=== PATIENT | male | born 1935 | race Caucasian/White ===

== ENCOUNTER → 2017-06-24 | Outpatient (CLI) | payer MEDICARE, OTHER ==
[~2017-06-24] MED LIST: OMEP-110 PO; PHYT1CAP2 PO; THYROID MEDICATION
[2017-06-24 12:46] LABS: BASOPHILS # (AUTO) 0.04 x10^3/uL (0-0.1); BASOPHILS % (AUTO) 1 % (0-1); EOSINOPHILS # (AUTO) 0.48 x10^3/uL (0-0.4); EOSINOPHILS % (AUTO) 6 % (1-7); LYMPHOCYTES # (AUTO) 2.37 x10^3/uL (1-3.4); LYMPHOCYTES % (AUTO) 31 % (22-44); MD NO; MEAN CORPUSCULAR HEMOGLOBIN 32.3 pg (27.5-34.5); MEAN CORPUSCULAR HGB CONC 33.9 g/dL (33.2-36.2); MEAN CORPUSCULAR VOLUME 95.1 fL (81-97); MEAN PLATELET VOLUME 8.6 fL (7.4-10.4); MONOCYTES # (AUTO) 0.54 x10^3/uL (0.2-0.8); MONOCYTES % (AUTO) 7 % (2-9); NEUTROPHILS # (AUTO) 4.36 x10^3/uL (1.8-6.8); NEUTROPHILS % (AUTO) 56 % (42-75); PLATELET COUNT 219 x10^3/uL (130-400); RED BLOOD COUNT 5.51 x10^6/uL (4.38-5.82); RED CELL DISTRIBUTION WIDTH 13.3 % (9.4-14.8)
[2017-06-24 12:50] LABS: CULTURE INDICATED? NO; MICROSCOPIC NOT IND
[2017-06-24 13:08] LABS: ALBUMIN 4.2 g/dL (3.4-5.0); ANION GAP 6 mmol/L (5-15); CALCIUM 8.6 mg/dL (8.5-10.1); CHLORIDE 107 mmol/L (98-107)
[2017-06-24 13:20] LABS: ALANINE AMINOTRANSFERASE 34 U/L (12-78); ALKALINE PHOSPHATASE 56 U/L (45-117); BILIRUBIN,TOTAL 1.2 mg/dL (0.2-1.0); CHOL/HDL RATIO 2.3; CHOLESTEROL, TOTAL 124 mg/dL (140-239); HDL CHOL % 44 % (26-37); HDL CHOLESTEROL (DIRECT) 54 mg/dL (40-60); LDL CHOLESTEROL,CALCULATED 44 mg/dL (54-169); LDL/HDL RATIO 0.8 (0.5-3.0); TOTAL PROTEIN 7.8 g/dL (6.4-8.2); TRIGLYCERIDES 129 mg/dL (50-200); VLDL CHOLESTEROL 26 mg/dL (0-25)
[2017-06-24 14:48] LABS: OCCULT BLOOD POSITIVE (NEGATIVE)
== END | disposition home or self-care (01) ==
LOC: CFH 11:08
PROVIDERS: ATTEND Family Medicine
DX: E78.5 Hyperlipidemia, unspecified (principal); E03.9 Hypothyroidism, unspecified; E55.9 Vitamin D deficiency, unspecified; I10 Essential (primary) hypertension; R97.20 Elevated prostate specific antigen [PSA]; K92.1 Melena
CPT/HCPCS: 36415; 80053; 80061; 81003; 82272; 82306; 84153; 84443; 85025

== ENCOUNTER → 2017-08-19 | Outpatient (CLI) | payer MEDICARE, OTHER | END | disposition home or self-care (01) | LOC: CFH 12:45 | PROVIDERS: ATTEND Family Medicine | DX: M17.12 Unilateral primary osteoarthritis, left knee (principal) ==

== ENCOUNTER → 2017-09-29 | Outpatient (CLI) | payer MEDICARE, OTHER ==
[~2017-09-29] MED LIST changes: +GADOBUTROL 10 MMOL/10 ML PFS ONE
== END | disposition home or self-care (01) ==
LOC: CFH 09:34
PROVIDERS: ATTEND Family Medicine
DX: M23.222 Derangement of posterior horn of medial meniscus due to old tear or injury, left knee (principal); M71.22 Synovial cyst of popliteal space [Baker], left knee; R60.0 Localized edema
CPT/HCPCS: 73723; 82565; A9585

== ENCOUNTER → 2017-12-12 | Outpatient (CLI) | payer MEDICARE, OTHER ==
[~2017-12-12] MED LIST changes: -GADOBUTROL 10 MMOL/10 ML PFS ONE
[2017-12-12 14:48] LABS: BASOPHILS # (AUTO) 0.03 x10^3/uL (0-0.1); BASOPHILS % (AUTO) 0 % (0-1); EOSINOPHILS # (AUTO) 0.47 x10^3/uL (0-0.4); EOSINOPHILS % (AUTO) 5 % (1-7); LYMPHOCYTES # (AUTO) 2.16 x10^3/uL (1-3.4); LYMPHOCYTES % (AUTO) 24 % (22-44); MD NO; MEAN CORPUSCULAR HEMOGLOBIN 31.5 pg (27.5-34.5); MEAN CORPUSCULAR HGB CONC 33.2 g/dL (33.2-36.2); MEAN CORPUSCULAR VOLUME 94.8 fL (81-97); MEAN PLATELET VOLUME 8.6 fL (7.4-10.4); MONOCYTES # (AUTO) 0.73 x10^3/uL (0.2-0.8); MONOCYTES % (AUTO) 8 % (2-9); NEUTROPHILS # (AUTO) 5.57 x10^3/uL (1.8-6.8); NEUTROPHILS % (AUTO) 62 % (42-75); PLATELET COUNT 207 x10^3/uL (130-400); RED BLOOD COUNT 5.26 x10^6/uL (4.38-5.82); RED CELL DISTRIBUTION WIDTH 14.6 % (9.4-14.8)
[2017-12-12 14:52] LABS: ALANINE AMINOTRANSFERASE 31 U/L (12-78); ALBUMIN 3.8 g/dL (3.4-5.0); ANION GAP 6 mmol/L (5-15); CALCIUM 8.5 mg/dL (8.5-10.1); CHLORIDE 109 mmol/L (98-107); CREATININE 1.28 mg/dL (0.7-1.3)
[2017-12-12 14:56] LABS: ALKALINE PHOSPHATASE 59 U/L (45-117); BILIRUBIN,TOTAL 1.1 mg/dL (0.2-1.0)
== END | disposition home or self-care (01) ==
LOC: CFH 14:13
PROVIDERS: ATTEND Family Medicine
DX: R06.02 Shortness of breath (principal)
CPT/HCPCS: 36415; 80053; 83880; 85025

== ENCOUNTER → 2018-03-28 | Outpatient (CLI) | payer MEDICARE, OTHER | END | disposition home or self-care (01) | LOC: CVU 07:41 | PROVIDERS: ATTEND Internal Medicine Cardiovascular Disease | DX: I65.23 Occlusion and stenosis of bilateral carotid arteries (principal); I10 Essential (primary) hypertension; I48.92 Unspecified atrial flutter; E78.5 Hyperlipidemia, unspecified | CPT/HCPCS: 93880 ==

== ENCOUNTER → 2018-04-05 | Outpatient (CLI) | payer MEDICARE, OTHER ==
[2018-04-05 13:05] LABS: ANION GAP 9 mmol/L (5-15); CALCIUM 8.7 mg/dL (8.5-10.1); CHLORIDE 107 mmol/L (98-107); CHOLESTEROL, TOTAL 105 mg/dL (140-239); TRIGLYCERIDES 115 mg/dL (50-200); VLDL CHOLESTEROL 23 mg/dL (0-25)
[2018-04-05 13:06] LABS: CHOL/HDL RATIO 2.4; HDL CHOL % 42 % (26-37); HDL CHOLESTEROL (DIRECT) 44 mg/dL (40-60); LDL CHOLESTEROL,CALCULATED 38 mg/dL (54-169); LDL/HDL RATIO 0.9 (0.5-3.0)
== END | disposition home or self-care (01) ==
LOC: LAB 09:21
PROVIDERS: ATTEND Internal Medicine Cardiovascular Disease
DX: E78.2 Mixed hyperlipidemia (principal)
CPT/HCPCS: 36415; 80048; 80061

== ENCOUNTER 2018-04-28 12:16 | Day surgery (SDC) | payer MEDICARE, OTHER ==
[~2018-04-28] VITALS: Ht 185.4 cm; Wt 98.1 kg
[2018-04-28 13:05] VITALS: BP 159/78
[2018-04-28] MEDS ORDERED: NIAC500T PO (13:23)
[2018-04-28] MEDS ORDERED: LOSA25TA6 PO (13:23)
[2018-04-28] MEDS ORDERED: FLUT1BLS3 INH (13:23)
[2018-04-28] MEDS ORDERED: ATOR40TA78 PO (13:23)
[2018-04-28] MEDS ORDERED: FLUT50DI INH (13:23)
[2018-04-28] MEDS ORDERED: CARV3.1212 PO (13:23)
[2018-04-28] MEDS ORDERED: APIX5TAB PO (13:23)
[2018-04-28] MEDS ORDERED: ASCO10004 PO (13:53)
[2018-04-28] MEDS ORDERED: LEVO112T4 PO (13:53)
[2018-04-28] MEDS ORDERED: CHOL2000 PO (13:53)
[2018-04-28] MEDS ORDERED: CYAN25009 PO (13:53)
[2018-04-28 13:56] LABS: BASOPHILS # (AUTO) 0.05 x10^3/uL (0-0.1); BASOPHILS % (AUTO) 0 % (0-1); EOSINOPHILS # (AUTO) 0.45 x10^3/uL (0-0.4); EOSINOPHILS % (AUTO) 4 % (1-7); LYMPHOCYTES % (AUTO) 19 % (22-44); MD NO; MEAN CORPUSCULAR HEMOGLOBIN 32.2 pg (27.5-34.5); MEAN CORPUSCULAR VOLUME 94.6 fL (81-97); MEAN PLATELET VOLUME 8.4 fL (7.4-10.4); MONOCYTES # (AUTO) 0.73 x10^3/uL (0.2-0.8); MONOCYTES % (AUTO) 7 % (2-9); NEUTROPHILS # (AUTO) 7.34 x10^3/uL (1.8-6.8); NEUTROPHILS % (AUTO) 69 % (42-75); PLATELET COUNT 215 x10^3/uL (130-400); RED BLOOD COUNT 5.27 x10^6/uL (4.38-5.82); RED CELL DISTRIBUTION WIDTH 14.5 % (9.4-14.8)
[2018-04-28 14:07] LABS: ANION GAP 9 mmol/L (5-15); CALCIUM 8.6 mg/dL (8.5-10.1); CHLORIDE 112 mmol/L (98-107); CREATININE 1.24 mg/dL (0.7-1.3)
[2018-04-28] MEDS ORDERED: PROPOFOL 10 MG/ML, 20ML ONE (14:42)
== END 2018-04-28 16:21 | disposition home or self-care (01) ==
LOC: CACL 12:16
PROVIDERS: ATTEND Internal Medicine Cardiovascular Disease
DX: I48.91 Unspecified atrial fibrillation (principal); I48.92 Unspecified atrial flutter; I10 Essential (primary) hypertension; E78.2 Mixed hyperlipidemia; I25.10 Atherosclerotic heart disease of native coronary artery without angina pectoris; I34.0 Nonrheumatic mitral (valve) insufficiency; I35.1 Nonrheumatic aortic (valve) insufficiency; Z88.0 Allergy status to penicillin; Z79.899 Other long term (current) drug therapy; Z98.890 Other specified postprocedural states
CPT/HCPCS: 36415; 80048; 85025; 92960; 93005; J2704

== ENCOUNTER → 2018-10-04 | Outpatient (CLI) | payer MEDICARE, OTHER ==
[~2018-10-04] MED LIST changes: +APIX5TAB PO; +ASCO10004 PO; +ATOR40TA78 PO; +CARV3.1212 PO; +CHOL2000 PO; +CYAN25009 PO; +FLUT1BLS3 INH; +FLUT50DI INH; +LEVO112T4 PO; +LOSA25TA25 PO; +NIAC500T PO
[2018-10-04 12:57] LABS: OCCULT BLOOD NEGATIVE (NEGATIVE)
[2018-10-04 12:58] LABS: BASOPHILS # (AUTO) 0.03 x10^3/uL (0-0.1); BASOPHILS % (AUTO) 0 % (0-1); EOSINOPHILS # (AUTO) 0.35 x10^3/uL (0-0.4); EOSINOPHILS % (AUTO) 4 % (1-7); LYMPHOCYTES # (AUTO) 1.71 x10^3/uL (1-3.4); LYMPHOCYTES % (AUTO) 21 % (22-44); MD NO; MEAN CORPUSCULAR HEMOGLOBIN 33.9 pg (27.5-34.5); MEAN CORPUSCULAR HGB CONC 34.1 g/dL (33.2-36.2); MEAN CORPUSCULAR VOLUME 99.4 fL (81-97); MEAN PLATELET VOLUME 8.7 fL (7.4-10.4); MONOCYTES # (AUTO) 0.61 x10^3/uL (0.2-0.8); MONOCYTES % (AUTO) 7 % (2-9); NEUTROPHILS # (AUTO) 5.45 x10^3/uL (1.8-6.8); NEUTROPHILS % (AUTO) 67 % (42-75); PLATELET COUNT 236 x10^3/uL (130-400); RED BLOOD COUNT 5.05 x10^6/uL (4.38-5.82); RED CELL DISTRIBUTION WIDTH 13.7 % (9.4-14.8)
[2018-10-04 13:03] LABS: MICROSCOPIC NOT IND
[2018-10-04 13:12] LABS: CALCIUM 9.3 mg/dL (8.5-10.1); CHLORIDE 106 mmol/L (98-107)
[2018-10-04 13:23] LABS: ALANINE AMINOTRANSFERASE 32 U/L (12-78); ALBUMIN 3.8 g/dL (3.4-5.0); ALKALINE PHOSPHATASE 56 U/L (45-117); ANION GAP 6 mmol/L (5-15); BILIRUBIN,TOTAL 1.2 mg/dL (0.2-1.0); CHOL/HDL RATIO 2.8; CHOLESTEROL, TOTAL 127 mg/dL (140-239); CREATININE 1.23 mg/dL (0.7-1.3); FREE T4 (FREE THYROXINE) 1.32 ng/dL (0.76-1.46); HDL CHOL % 36 % (26-37); HDL CHOLESTEROL (DIRECT) 46 mg/dL (40-60); LDL CHOLESTEROL,CALCULATED 48 mg/dL (54-169); TRIGLYCERIDES 166 mg/dL (50-200); VLDL CHOLESTEROL 33 mg/dL (0-25)
== END | disposition home or self-care (01) ==
LOC: CFH 09:06
PROVIDERS: ATTEND Family Medicine
DX: Z12.11 Encounter for screening for malignant neoplasm of colon (principal); R97.20 Elevated prostate specific antigen [PSA]; R73.09 Other abnormal glucose; E03.9 Hypothyroidism, unspecified; E78.5 Hyperlipidemia, unspecified; Z79.899 Other long term (current) drug therapy
CPT/HCPCS: 36415; 80053; 80061; 81003; 82272; 83036; 84153; 84439; 84443; 85025

== ENCOUNTER 2018-11-17 06:22 | Observation (INO) | payer MEDICARE, OTHER ==
[2018-11-16 09:58] VITALS: BP 138/81
[2018-11-16 10:16] LABS: BASOPHILS # (AUTO) 0.04 x10^3/uL (0-0.1); BASOPHILS % (AUTO) 1 % (0-1); EOSINOPHILS # (AUTO) 0.35 x10^3/uL (0-0.4); EOSINOPHILS % (AUTO) 4 % (1-7); LYMPHOCYTES % (AUTO) 20 % (22-44); MD NO; MEAN CORPUSCULAR HEMOGLOBIN 33.3 pg (27.5-34.5); MEAN CORPUSCULAR HGB CONC 33.5 g/dL (33.2-36.2); MEAN CORPUSCULAR VOLUME 99.7 fL (81-97); MEAN PLATELET VOLUME 8.2 fL (7.4-10.4); MONOCYTES # (AUTO) 0.56 x10^3/uL (0.2-0.8); MONOCYTES % (AUTO) 6 % (2-9); NEUTROPHILS # (AUTO) 6.07 x10^3/uL (1.8-6.8); NEUTROPHILS % (AUTO) 69 % (42-75); PLATELET COUNT 214 x10^3/uL (130-400); RED BLOOD COUNT 5.16 x10^6/uL (4.38-5.82); RED CELL DISTRIBUTION WIDTH 12.6 % (9.4-14.8)
[2018-11-16 10:26] LABS: ANION GAP 8 mmol/L (5-15); CALCIUM 8.9 mg/dL (8.5-10.1); CHLORIDE 110 mmol/L (98-107); CREATININE 1.27 mg/dL (0.7-1.3)
[~2018-11-17] VITALS: Ht 182.9 cm; Wt 101.8 kg
[~2018-11-17 06:22] MED LIST changes: +ATOR40TA PO; +CARV12.52 PO; +MULT-658 PO; +OMEG-76 PO; +RANI150T4 PO
[2018-11-17] MEDS ORDERED: LIDOCAINE 1%, 20ML ONE (06:24)
[2018-11-17] MEDS: SODIUM CHLORIDE 0.9% 1,000 ML IV SCH ×3 (06:46→22:46)
[2018-11-17] MEDS ORDERED: SODIUM CHLORIDE 0.9% 1,000 ML IV SCH (06:46)
[2018-11-17] MEDS ORDERED: VANCOMYCIN 500 MG ONE (07:45)
[2018-11-17] MEDS ORDERED: VANCOMYCIN PMX 1GM/200ML 200 ML ONE (07:46)
[2018-11-17] MEDS ORDERED: MIDAZOLAM 1 MG/ML, 2ML ONE (08:31)
[2018-11-17] MEDS ORDERED: FENTANYL PF 250 MCG/5ML ONE (08:31)
[2018-11-17] MEDS ORDERED: EPHEDRINE 50 MG/ML, 1ML ONE (08:52)
[2018-11-17] MEDS ORDERED: DEXAMETHASONE 4 MG/ML, 1ML ONE ×2 (09:00→10:47)
[2018-11-17] MEDS ORDERED: ONDANSETRON 2MG/ML, 2ML ONE ×2 (10:46→10:47)
[2018-11-17] MEDS ORDERED: PROPOFOL 10 MG/ML, 20ML ONE (10:47)
[2018-11-17] MEDS ORDERED: ROCURONIUM 10MG/ML,5ML ONE (10:47)
[2018-11-17] MEDS ORDERED: SUCCINYLCHOLINE 20 MG/ML, 10ML ONE (10:47)
[2018-11-17] MEDS ORDERED: ACETAMINOPHEN 325 MG TABLET PO PRN (11:00)
[2018-11-17] MEDS ORDERED: HOLD MEDICATION MC PRN (11:00)
[2018-11-17] MEDS ORDERED: LABETALOL 5MG/ML, 20ML IV PRN (11:30)
[2018-11-17] MEDS ORDERED: PROMETHAZINE 12.5 MG SUPP PR PRN (11:30)
[2018-11-17] MEDS ORDERED: MEPERIDINE/PF 25MG/0.5ML IVPush PRN (11:30)
[2018-11-17] MEDS ORDERED: ALBUTEROL SULFATE 2.5 MG/3 ML NPPB PRN (11:30)
[2018-11-17] MEDS ORDERED: MORPHINE SULFATE 4 MG/ML, 1ML IVPush PRN (11:30)
[2018-11-17] MEDS ORDERED: DIAZEPAM 5 MG/ML, 2ML IVPush PRN (11:30)
[2018-11-17] MEDS ORDERED: HYDROmorphone 2 MG/ML, 1ML IVPush PRN (11:30)
[2018-11-17] MEDS ORDERED: OXYcodone 5 MG/5 ML ORAL.SOL UDC PO PRN (11:30)
[2018-11-17] MEDS ORDERED: hydrALAzine 20 MG/ML, 1ML IV PRN (11:30)
[2018-11-17] MEDS ORDERED: ONDANSETRON ODT 8 MG PO PRN (11:30)
[2018-11-17] MEDS ORDERED: ONDANSETRON 2MG/ML, 2ML IV PRN (11:30)
[2018-11-17] MEDS ORDERED: MIDAZOLAM 1 MG/ML, 2ML IV PRN (11:30)
[2018-11-17] MEDS ORDERED: PROMETHAZINE 25 MG/ML, 1ML IV PRN (11:30)
[2018-11-17] MEDS ORDERED: EPHEDRINE 50 MG/ML, 1ML IVPush PRN (11:30)
[2018-11-17] MEDS ORDERED: HALOPERIDOL 5 MG/ML IV PRN (11:30)
[2018-11-17] MEDS ORDERED: FENTANYL PF 100 MCG/2ML IV PRN (11:30)
[2018-11-17] MEDS ORDERED: ACETAMINOPHEN 650 MG/20.3 ML UDC ONE (11:53)
[2018-11-17] MEDS ORDERED: OXYcodone 5 MG/5 ML ORAL.SOL UDC ONE (11:53)
[2018-11-17 14:37] VITALS: BP 137/81
[2018-11-17] MEDS ORDERED: GLYCOPYRROLATE 0.2MG/1ML, 5ML ONE (15:35)
[2018-11-17] MEDS ORDERED: VANCOMYCIN PMX 1GM/200ML 200 ML IVPB ONE (19:00)
[2018-11-17 19:32] VITALS: BP 113/65
[2018-11-17 20:24] VITALS: BP 121/66
[2018-11-17] MEDS: SODIUM CHLORIDE FLUSH 10ML SYR IVF SCH (20:29)
[2018-11-17] MEDS: CARVEDILOL 12.5 MG TABLET PO SCH (20:29)
[2018-11-17] MEDS: FAMOTIDINE 20 MG TABLET PO SCH (20:29)
[2018-11-17] MEDS ORDERED: ATORVASTATIN 40 MG TABLET PO SCH (21:00)
[2018-11-18 00:39] VITALS: BP 132/73
[2018-11-18] MEDS ORDERED: LEVOTHYROXINE 112 MCG TABLET ONE (02:54)
[2018-11-18] MEDS: SODIUM CHLORIDE 0.9% 1,000 ML IV SCH (02:56)
[2018-11-18 06:45] VITALS: BP 131/80
[2018-11-18 07:08] VITALS: BP 171/81
[2018-11-18 08:15] VITALS: BP 130/77
[2018-11-18] MEDS: FAMOTIDINE 20 MG TABLET PO SCH (08:16)
[2018-11-18] MEDS: CARVEDILOL 12.5 MG TABLET PO SCH (08:17)
[2018-11-18] MEDS: SODIUM CHLORIDE FLUSH 10ML SYR IVF SCH (08:18)
[2018-11-18] MEDS ORDERED: CYANOCOBALAMIN 1,000 MCG TABLET PO SCH (09:00)
[2018-11-18] MEDS ORDERED: LOSARTAN 25MG TABLET PO SCH (09:00)
[2018-11-18] MEDS ORDERED: MULTIVITAMIN 1 TABLET PO SCH (09:00)
[2018-11-18] MEDS ORDERED: LEVOTHYROXINE 112 MCG TABLET PO SCH (09:00)
[2018-11-18] MEDS ORDERED: BUDESONIDE 0.5 MG/2 ML INHA HHN SCH (09:00)
[2018-11-18] MEDS ORDERED: OMEGA-3/FISH OIL CAPSULE PO SCH (09:00)
[2018-11-18] MEDS ORDERED: CHOLECALCIFEROL 1,000 UNIT TABLET PO SCH (09:00)
== END 2018-11-18 13:20 | disposition home or self-care (01) ==
LOC: CACL 06:22 → 5SO 12:45 → CACL 22:47 → 5SO 22:48 → DCLOUNGE 11-18 13:03
PROVIDERS: ADMIT Internal Medicine Cardiovascular Disease; ATTEND Internal Medicine Cardiovascular Disease
DX: I44.7 Left bundle-branch block, unspecified (principal); I44.0 Atrioventricular block, first degree; I25.5 Ischemic cardiomyopathy; I11.0 Hypertensive heart disease with heart failure; I50.9 Heart failure, unspecified; I48.3 Typical atrial flutter; Z79.899 Other long term (current) drug therapy
CPT/HCPCS: 33208; 33225; 36415; 71045; 71046; 80048; 85025; 93613; 93653; 96365; C1730; C1731; C1732; C1769; C1779; C1887; C1892; C1894; C1900; C2621; G0378; J0330; J1100; J2250; J2405; J2704; J3010; J3370; J3490; Q9967; 93621

== ENCOUNTER 2019-11-29 13:39 | Outpatient (CLI) | payer MEDICARE, OTHER | END 2019-11-29 23:59 | disposition home or self-care (01) | LOC: CFH 13:39 | PROVIDERS: ATTEND Internal Medicine Cardiovascular Disease | DX: I06.1 Rheumatic aortic insufficiency (principal); I42.0 Dilated cardiomyopathy | CPT/HCPCS: 93306 ==

== ENCOUNTER → 2020-08-19 | Outpatient (CLI) | payer MEDICARE, OTHER ==
[~2020-08-19] MED LIST changes: +ASCO100018 PO; -ASCO10004 PO; +REGADENOSON 0.4 MG/5 ML SYRINGE ONE
== END | disposition home or self-care (01) ==
LOC: CFH 12:09
PROVIDERS: ATTEND Internal Medicine Cardiovascular Disease
DX: I25.10 Atherosclerotic heart disease of native coronary artery without angina pectoris (principal); I42.9 Cardiomyopathy, unspecified
CPT/HCPCS: 78452; A9502; A9541; J2785

== ENCOUNTER → 2021-03-11 | Outpatient (CLI) | payer MEDICARE, OTHER | END | disposition home or self-care (01) | LOC: LAB 09:07 | PROVIDERS: ATTEND Internal Medicine | DX: I12.9 Hypertensive chronic kidney disease with stage 1 through stage 4 chronic kidney disease, or unspecified chronic kidney disease (principal); N18.31 Chronic kidney disease, stage 3a; I25.10 Atherosclerotic heart disease of native coronary artery without angina pectoris; E03.9 Hypothyroidism, unspecified; R73.03 Prediabetes; I42.9 Cardiomyopathy, unspecified; E78.2 Mixed hyperlipidemia ==